=== PATIENT | female | born 1955 | race Caucasian/White ===

== ENCOUNTER 2021-07-08 16:19 | Inpatient (IN) | payer BC, MEDICARE ==
[~2021-07-08] VITALS: Ht 167.6 cm; Wt 56.8 kg
[~2021-07-08 16:19] MED LIST: NO HOME MEDS
[2021-07-08] MEDS ORDERED: dexamethasone sod phosphate 10mg/ml inj IV STA (16:54)
[2021-07-08] MEDS ORDERED: normal saline 1000ML IV soln IVB ONE (16:55)
[2021-07-08 18:12] LABS: BASOPHILS % (AUTO) 0.4 % (0-1); EOSINOPHILS % (AUTO) 0.5 % (0-6); HEMATOCRIT 36.9 % (35.0-45.0); HEMOGLOBIN 12.8 g/dl (12.0-16.0); LYMPHOCYTES # (AUTO) 1.5 X10'3 (1.1-4.8); LYMPHOCYTES % (AUTO) 14.7 % (21-51); MEAN CORPUSCULAR HEMOGLOBIN 30.5 PG (27.0-31.0); MEAN CORPUSCULAR HGB CONC 34.6 g/dL (33.0-36.5); MEAN CORPUSCULAR VOLUME 88.3 FL (78-98); MEAN PLATELET VOLUME 9.7 FL (7.4-10.4); MONOCYTES % (AUTO) 9.5 % (2-12); NEUTROPHILS # (AUTO) 7.5 X10'3 (1.8-7.7); NEUTROPHILS % (AUTO) 74.9 % (42-75); PLATELET COUNT 413 X10'3 (140-440); RED BLOOD COUNT 4.18 X10'6 (4.20-5.60); RED CELL DISTRIBUTION WIDTH 14.5 % (11.5-14.5)
[2021-07-08 18:20] LABS: ALANINE AMINOTRANSFERASE 46 U/L (12-78); ALBUMIN 3.5 G/DL (3.4-5.0); ALKALINE PHOSPHATASE 54 IU/L (46-116); ANION GAP 8 (8-16); ASPARTATE AMINO TRANSFERASE 37 U/L (10-37); BILIRUBIN,TOTAL 1.2 MG/DL (0.1-1.0); BLOOD UREA NITROGEN 31 MG/DL (7-18); BUN/CREATININE RATIO 31.3 (6.6-38.0); CALCIUM 8.9 MG/DL (8.5-10.1); CHLORIDE 102 MMOL/L (99-107); CREATININE 0.99 MG/DL (0.40-0.90); GLUCOSE 112 MG/DL (70-104); MAGNESIUM 1.8 MG/DL (1.5-2.4); SODIUM 144 MMOL/L (135-145); TOTAL CARBON DIOXIDE 34.1 MMOL/L (24-32); TOTAL PROTEIN 6.9 G/DL (6.4-8.2); eGFR 56 ML/MIN
[2021-07-08 18:27] LABS: POTASSIUM 2.8 MMOL/L (3.5-5.1)
[2021-07-08] MEDS ORDERED: potassium Cl 40 mEq/0.45% sodium chloride IV soln 520ml IV ONE (18:35)
--- NOTE | 2021-07-08 19:07 | NUR ---
Pt in room resting. Pt denies pain but states she is 'uncomfortable'.
[2021-07-08] MEDS: magnesium 2GM in 50ml NS 50 ML IV SCH ×2 (19:35→19:36)
--- NOTE | 2021-07-08 19:42 | NUR ---
Per ER MD, Mg order is for 2 mg totalx 1 bag Addendum: 07/08/21 at 1943 by JUNAID md order for 2 grams Mg total
[2021-07-08] MEDS ORDERED: potassium Cl 20 mEq SR tablet PO PRN ×2 (20:00)
[2021-07-08] MEDS ORDERED: potassium Cl 40MEQ/1/2NS 520ml 520 ML IV PRN ×2 (20:00)
[2021-07-08] MEDS ORDERED: ondansetron 4mg rapidly disintigrating tab PO PRN (20:00)
[2021-07-08] MEDS ORDERED: morphine 2 MG/ML inj. syringe IV PRN (20:00)
[2021-07-08] MEDS: docusate sod 100mg capsule PO SCH (20:00)
[2021-07-08] MEDS ORDERED: acetaminophen 650mg rectal suppository RC PRN (20:00)
[2021-07-08] MEDS ORDERED: bisacodyl 10mg suppository rectal RC PRN (20:00)
[2021-07-08] MEDS ORDERED: diphenhydrAMINE 25mg capsule PO PRN (20:00)
[2021-07-08] MEDS ORDERED: magnesium hydroxide 30ml (MOM) UD suspension PO PRN (20:00)
[2021-07-08] MEDS ORDERED: diphenhydrAMINE 50 mg/ml inj IV PRN (20:00)
[2021-07-08] MEDS: K and/or MAG REPLACEMENT MC SCH (20:00)
[2021-07-08] MEDS: potassium Cl 20mEq in NS 1,000 ML IV SCH (20:00)
[2021-07-08] MEDS ORDERED: acetaminophen 325mg tablet PO PRN ×2 (20:00)
[2021-07-08] MEDS ORDERED: mag hydrox/Alum hydrox/simeth 30ml oral suspension PO PRN (20:00)
[2021-07-08] MEDS ORDERED: ondansetron/PF 4mg/2ml inj IV PRN (20:00)
[2021-07-08] MEDS ORDERED: lisinopril 10 MG tablet PO ONE (20:05)
[2021-07-08 20:43] LABS: HEMOGLOBIN A1C 5.5 % (4.5-6.2)
[2021-07-08] MEDS: heparin, porcine 5000 units/ml vial SQ SCH (20:44)
[2021-07-08] MEDS: aspirin 81mg, enteric-coated 1 TAB TABLET.DR PO SCH (20:46)
[2021-07-08 20:50] LABS: CREATINE KINASE 75 U/L (26-192); D-DIMER 0.25 MG/L FEU (0-0.50); LIPASE 197 U/L (73-393); PARTIAL THROMBOPLASTIN TIME 27 SECONDS (22-32)
[2021-07-08] MEDS ORDERED: temazepam 15mg capsule PO PRN (21:00)
[2021-07-08] MEDS ORDERED: aspirin 325mg tablet PO ONE (21:40)
[2021-07-09] MEDS: HYDROcodone/acetaminophen 5mg/325mg tablet PO PRN (04:13)
[2021-07-09] MEDS: potassium Cl 20mEq in NS 1,000 ML IV SCH ×3 (05:58→22:32)
--- NOTE | 2021-07-09 06:55 | NUR ---
Patient in room ED 11. I have received report from ADE Mcdermott and had the opportunity to ask questions and assume patient care. Awaiting patient arrival to room 3020J.
[2021-07-09 07:22] VITALS: BP 148/59
--- NOTE | 2021-07-09 07:22 | NUR ---
Patient arrived to room 3027B via gurney from ED. Patient was transferred via slideboard into the bed. Vital signs are temp 98.3F, HR 46, RR 15, 94% on room air, BP 148/59, pain 0/10. Bed locked and lowered, nonskid socks on, call light in reach, and in no acute distress.
[2021-07-09] MEDS: docusate sod 100mg capsule PO SCH ×2 (08:00→20:00)
[2021-07-09] MEDS: K and/or MAG REPLACEMENT MC SCH ×2 (08:00→20:00)
[2021-07-09 08:14] LABS: BASOPHILS % (AUTO) 0.1 % (0-1); EOSINOPHILS % (AUTO) 0 % (0-6); HEMATOCRIT 36.4 % (35.0-45.0); HEMOGLOBIN 12.4 g/dl (12.0-16.0); LYMPHOCYTES # (AUTO) 0.9 X10'3 (1.1-4.8); LYMPHOCYTES % (AUTO) 9.7 % (21-51); MEAN CORPUSCULAR HEMOGLOBIN 30.7 PG (27.0-31.0); MEAN CORPUSCULAR VOLUME 90.1 FL (78-98); MONOCYTES # (AUTO) 0.4 X10'3 (0-0.9); MONOCYTES % (AUTO) 4.7 % (2-12); NEUTROPHILS # (AUTO) 7.8 X10'3 (1.8-7.7); NEUTROPHILS % (AUTO) 85.5 % (42-75); PLATELET COUNT 408 X10'3 (140-440); RED BLOOD COUNT 4.04 X10'6 (4.20-5.60); RED CELL DISTRIBUTION WIDTH 14.3 % (11.5-14.5); WHITE BLOOD COUNT 9.2 X10'3 (4.5-11.0)
[2021-07-09 08:32] LABS: ALANINE AMINOTRANSFERASE 45 U/L (12-78); ALBUMIN 3.2 G/DL (3.4-5.0); ALKALINE PHOSPHATASE 58 IU/L (46-116); ANION GAP 9 (8-16); ASPARTATE AMINO TRANSFERASE 29 U/L (10-37); BLOOD UREA NITROGEN 24 MG/DL (7-18); BUN/CREATININE RATIO 33.3 (6.6-38.0); CALCIUM 8.6 MG/DL (8.5-10.1); CHLORIDE 106 MMOL/L (99-107); CREATININE 0.72 MG/DL (0.40-0.90); GLUCOSE 108 MG/DL (70-104); POTASSIUM 4.1 MMOL/L (3.5-5.1); SODIUM 143 MMOL/L (135-145); TOTAL PROTEIN 6.5 G/DL (6.4-8.2); eGFR 81 ML/MIN
[2021-07-09] MEDS: pantoprazole 40mg Tablet.DR PO SCH (09:28)
[2021-07-09] MEDS: atorvastatin 20mg tablet PO SCH (09:28)
[2021-07-09] MEDS: aspirin 81mg, enteric-coated 1 TAB TABLET.DR PO SCH (09:29)
[2021-07-09] MEDS: heparin, porcine 5000 units/ml vial SQ SCH ×2 (09:31→19:45)
[2021-07-09] MEDS ORDERED: LORazepam 2 mg/ml vial IV ONE ×2 (10:45→13:25)
[2021-07-09 11:00] VITALS: BP 168/60
--- NOTE | 2021-07-09 11:53 | NUR ---
Paged Dr. Damon regarding patient being claustrophobic and wanting ativan prior to MRI. PAGER ID: [phone] MESSAGE: [id number]. Fernanda Valdivia. patient is claustrophobic. may I order ativan one time prior to MRI? Thank you. Lydia BOOKER x [phone]
--- NOTE | 2021-07-09 13:18 | NUR ---
Paged Dr. Damon regarding ativan for patient having claustrophobia for MRI again. PAGER ID: [phone] MESSAGE: [id number]. Fernanda Valdivia. Can I please get an order for Ativan for patient's claustrophobia for MRI? Thank you. Lydia BOOKER x [phone]
[2021-07-09 15:00] VITALS: BP 182/72
--- NOTE | 2021-07-09 17:28 | NUR ---
Patient leaving for MRI.
[2021-07-09 18:00] VITALS: BP 158/66
--- NOTE | 2021-07-09 18:00 | NUR ---
patient back from MRI.
--- NOTE | 2021-07-09 18:16 | NUR ---
Problems reprioritized. Patient report given, questions answered & plan of care reviewed with ADE Dinh. Patient stable at transfer of care.
--- NOTE | 2021-07-09 19:35 | NUR ---
Telephone order from Dr. Redding for 1 mg Ativan IV q2h PRN
[2021-07-09] MEDS: LORazepam 2 mg/ml vial IV PRN ×2 (19:46→22:33)
[2021-07-09 22:00] VITALS: BP 110/59
[2021-07-10 02:00] VITALS: BP 103/62
[2021-07-10 06:01] LABS: BASOPHILS % (AUTO) 0.3 % (0-1); EOSINOPHILS % (AUTO) 0.3 % (0-6); HEMATOCRIT 35.4 % (35.0-45.0); HEMOGLOBIN 12.3 g/dl (12.0-16.0); LYMPHOCYTES # (AUTO) 1.6 X10'3 (1.1-4.8); LYMPHOCYTES % (AUTO) 18.7 % (21-51); MEAN CORPUSCULAR HEMOGLOBIN 30.9 PG (27.0-31.0); MEAN CORPUSCULAR HGB CONC 34.9 g/dL (33.0-36.5); MEAN CORPUSCULAR VOLUME 88.5 FL (78-98); MEAN PLATELET VOLUME 9.2 FL (7.4-10.4); MONOCYTES # (AUTO) 0.7 X10'3 (0-0.9); MONOCYTES % (AUTO) 7.7 % (2-12); NEUTROPHILS # (AUTO) 6.2 X10'3 (1.8-7.7); PLATELET COUNT 391 X10'3 (140-440); RED CELL DISTRIBUTION WIDTH 14.4 % (11.5-14.5); WHITE BLOOD COUNT 8.5 X10'3 (4.5-11.0)
--- NOTE | 2021-07-10 06:19 | NUR ---
Patient in room PCU 3027. I have received report from ADE Dinh and had the opportunity to ask questions and assume patient care.
--- NOTE | 2021-07-10 06:19 | NUR ---
Problems reprioritized. Patient report given, questions answered & plan of care reviewed with Carole BOOKER.
[2021-07-10 06:23] LABS: ALANINE AMINOTRANSFERASE 44 U/L (12-78); ALBUMIN 3.1 G/DL (3.4-5.0); ALKALINE PHOSPHATASE 56 IU/L (46-116); ANION GAP 8 (8-16); ASPARTATE AMINO TRANSFERASE 33 U/L (10-37); BLOOD UREA NITROGEN 19 MG/DL (7-18); CALCIUM 8.3 MG/DL (8.5-10.1); CHLORIDE 112 MMOL/L (99-107); CREATININE 0.76 MG/DL (0.40-0.90); GLUCOSE 92 MG/DL (70-104); POTASSIUM 3.6 MMOL/L (3.5-5.1); SODIUM 147 MMOL/L (135-145); TOTAL CARBON DIOXIDE 27.3 MMOL/L (24-32); TOTAL PROTEIN 6.1 G/DL (6.4-8.2); eGFR 76 ML/MIN
--- NOTE | 2021-07-10 06:56 | NUR ---
Patient in room PCU 3027. I have received report from DAE Case and had the opportunity to ask questions and assume patient care.
[2021-07-10 07:00] VITALS: BP 139/78
[2021-07-10] MEDS: K and/or MAG REPLACEMENT MC SCH ×2 (08:00→19:35)
[2021-07-10] MEDS: pantoprazole 40mg Tablet.DR PO SCH (08:16)
[2021-07-10] MEDS: atorvastatin 20mg tablet PO SCH (08:16)
[2021-07-10] MEDS: aspirin 81mg, enteric-coated 1 TAB TABLET.DR PO SCH (08:16)
[2021-07-10] MEDS: potassium Cl 20mEq in NS 1,000 ML IV SCH ×2 (08:16→23:59)
[2021-07-10] MEDS: heparin, porcine 5000 units/ml vial SQ SCH ×2 (08:17→19:34)
[2021-07-10] MEDS: docusate sodium 100mg/10ml UD cup PO SCH ×2 (08:38→19:35)
[2021-07-10 11:00] VITALS: BP 154/69
--- NOTE | 2021-07-10 14:33 | NUR ---
Paged Sandra the Stroke nurse Fernanda Dove [id number] Can you call me regarding this pt please? Pt had positive infarct on CT/MRI 07/09/21 Thank you [phone]
[2021-07-10 15:00] VITALS: BP 142/87
--- NOTE | 2021-07-10 15:53 | NUR ---
Paged Physical Therapy Re Fernanda Valdivia Rm [phone] Can somebody help me put pt back to bed please? Thank you :) [phone]
[2021-07-10] MEDS: dextrose 5%-normal saline 1,000 ML IV SCH (16:45)
[2021-07-10] MEDS: HYDROcodone/acetaminophen 5mg/325mg tablet PO PRN (17:52)
[2021-07-10 18:00] VITALS: BP 158/86
--- NOTE | 2021-07-10 18:20 | NUR ---
Problems reprioritized. Patient report given, questions answered & plan of care reviewed with ADE Redd. Pt sitting up in bed, at bedside helping pt eat dinner.
--- NOTE | 2021-07-10 18:28 | NUR ---
Problems reprioritized. Patient report given, questions answered & plan of care reviewed with ADE Redd.
--- NOTE | 2021-07-10 18:30 | NUR ---
Patient in room PCU 3027. I have received report from Carole BOOKER and had the opportunity to ask questions and assume patient care.
[2021-07-10 22:00] VITALS: BP 181/77
[2021-07-11 02:00] VITALS: BP 194/82
[2021-07-11] MEDS: morphine 2 MG/ML inj. syringe IV PRN (03:10)
[2021-07-11 06:00] VITALS: BP 115/71
[2021-07-11 06:08] LABS: BASOPHILS # (AUTO) 0.1 X10'3 (0-0.2); BASOPHILS % (AUTO) 0.6 % (0-1); EOSINOPHILS % (AUTO) 0.5 % (0-6); HEMATOCRIT 35.3 % (35.0-45.0); HEMOGLOBIN 12.1 g/dl (12.0-16.0); LYMPHOCYTES # (AUTO) 1.2 X10'3 (1.1-4.8); MEAN CORPUSCULAR HEMOGLOBIN 30.8 PG (27.0-31.0); MEAN CORPUSCULAR HGB CONC 34.5 g/dL (33.0-36.5); MEAN CORPUSCULAR VOLUME 89.4 FL (78-98); MEAN PLATELET VOLUME 9.4 FL (7.4-10.4); MONOCYTES # (AUTO) 0.7 X10'3 (0-0.9); MONOCYTES % (AUTO) 7.6 % (2-12); NEUTROPHILS # (AUTO) 7.2 X10'3 (1.8-7.7); NEUTROPHILS % (AUTO) 78.3 % (42-75); PLATELET COUNT 393 X10'3 (140-440); RED BLOOD COUNT 3.94 X10'6 (4.20-5.60); RED CELL DISTRIBUTION WIDTH 13.9 % (11.5-14.5); WHITE BLOOD COUNT 9.2 X10'3 (4.5-11.0)
[2021-07-11 06:09] LABS: ALANINE AMINOTRANSFERASE 35 U/L (12-78); ALKALINE PHOSPHATASE 57 IU/L (46-116); ANION GAP 12 (8-16); ASPARTATE AMINO TRANSFERASE 27 U/L (10-37); BILIRUBIN,TOTAL 1.1 MG/DL (0.1-1.0); BLOOD UREA NITROGEN 13 MG/DL (7-18); BUN/CREATININE RATIO 19.4 (6.6-38.0); CALCIUM 8.4 MG/DL (8.5-10.1); CHLORIDE 111 MMOL/L (99-107); CREATININE 0.67 MG/DL (0.40-0.90); GLUCOSE 98 MG/DL (70-104); POTASSIUM 3.6 MMOL/L (3.5-5.1); SODIUM 148 MMOL/L (135-145); TOTAL CARBON DIOXIDE 25.5 MMOL/L (24-32); eGFR 88 ML/MIN
--- NOTE | 2021-07-11 06:30 | NUR ---
Problems reprioritized. Patient report given, questions answered & plan of care reviewed with Carole BOOKER.
[2021-07-11] MEDS: K and/or MAG REPLACEMENT MC SCH ×2 (08:00→19:38)
[2021-07-11] MEDS: aspirin 81mg, enteric-coated 1 TAB TABLET.DR PO SCH (09:02)
[2021-07-11] MEDS: atorvastatin 20mg tablet PO SCH (09:02)
[2021-07-11] MEDS: heparin, porcine 5000 units/ml vial SQ SCH ×2 (09:04→19:37)
[2021-07-11] MEDS: docusate sodium 100mg/10ml UD cup PO SCH ×2 (09:07→19:37)
[2021-07-11] MEDS: potassium Cl 20mEq in NS 1,000 ML IV SCH ×2 (09:07→18:00)
[2021-07-11] MEDS: pantoprazole 40mg Tablet.DR PO SCH (09:07)
[2021-07-11] MEDS: HYDROcodone/acetaminophen 5mg/325mg tablet PO PRN ×2 (09:08→14:41)
--- NOTE | 2021-07-11 10:05 | NUR ---
Paged Dr Damon PAGER ID: [phone] MESSAGE: Fernanda Dove [id number] FYI Positive MRSA nasal swab. Thanks Carole [phone]
[2021-07-11 11:00] VITALS: BP 202/87
--- NOTE | 2021-07-11 11:15 | NUR ---
Patient's blood pressure elevated 202/84 L arm, 210/[address] Damon on the floor and was informed. She said "she had a stroke, I want her to have elevated blood pressures, I will look at her medications."
[2021-07-11] MEDS: dextrose 5%-normal saline 1,000 ML IV SCH (11:38)
[2021-07-11 15:00] VITALS: BP 200/86
--- NOTE | 2021-07-11 17:02 | NUR ---
Paged Dr Damon PAGER ID: [phone] MESSAGE: Fernanda Dove [id number] FYI pt's blood pressure still elevated 200/86 HR 70. Thanks Carole [phone]
[2021-07-11 18:00] VITALS: BP 205/87
--- NOTE | 2021-07-11 18:03 | NUR ---
Problems reprioritized. Patient report given, questions answered & plan of care reviewed with ADE Redd. Pt sitting up visiting with family at change of shift. No signs of distress noted at this time.
--- NOTE | 2021-07-11 18:22 | NUR ---
Patient in room PCU 3027. I have received report from Carole BOOKER and had the opportunity to ask questions and assume patient care.
[2021-07-11 22:00] VITALS: BP 184/78
[2021-07-12] VITALS (8 sets, daily range): BP systolic 146–219; BP diastolic 68–106
[2021-07-12] MEDS: morphine 2 MG/ML inj. syringe IV PRN (03:01)
[2021-07-12] MEDS: potassium Cl 20mEq in NS 1,000 ML IV SCH ×2 (04:00→14:00)
[2021-07-12] MEDS: dextrose 5%-normal saline 1,000 ML IV SCH (05:25)
[2021-07-12 06:12] LABS: BASOPHILS % (AUTO) 0.5 % (0-1); EOSINOPHILS # (AUTO) 0.1 X10'3 (0-0.9); EOSINOPHILS % (AUTO) 1.6 % (0-6); HEMATOCRIT 38.8 % (35.0-45.0); HEMOGLOBIN 12.9 g/dl (12.0-16.0); LYMPHOCYTES # (AUTO) 1.3 X10'3 (1.1-4.8); LYMPHOCYTES % (AUTO) 16.5 % (21-51); MEAN CORPUSCULAR HEMOGLOBIN 30.1 PG (27.0-31.0); MEAN CORPUSCULAR HGB CONC 33.4 g/dL (33.0-36.5); MEAN CORPUSCULAR VOLUME 90.3 FL (78-98); MEAN PLATELET VOLUME 9.4 FL (7.4-10.4); MONOCYTES # (AUTO) 0.6 X10'3 (0-0.9); NEUTROPHILS # (AUTO) 5.7 X10'3 (1.8-7.7); NEUTROPHILS % (AUTO) 73.4 % (42-75); PLATELET COUNT 399 X10'3 (140-440); RED BLOOD COUNT 4.29 X10'6 (4.20-5.60); RED CELL DISTRIBUTION WIDTH 13.7 % (11.5-14.5); WHITE BLOOD COUNT 7.8 X10'3 (4.5-11.0)
--- NOTE | 2021-07-12 06:24 | NUR ---
Problems reprioritized. Patient report given, questions answered & plan of care reviewed with Carole BOOKER.
[2021-07-12 06:41] LABS: ALANINE AMINOTRANSFERASE 32 U/L (12-78); ALBUMIN 2.9 G/DL (3.4-5.0); ALBUMIN/GLOBULIN RATIO 0.9 (1.1-1.5); ALKALINE PHOSPHATASE 64 IU/L (46-116); ANION GAP 10 (8-16); ASPARTATE AMINO TRANSFERASE 27 U/L (10-37); BILIRUBIN,TOTAL 1.2 MG/DL (0.1-1.0); BLOOD UREA NITROGEN 6 MG/DL (7-18); CALCIUM 8.4 MG/DL (8.5-10.1); CHLORIDE 111 MMOL/L (99-107); GLUCOSE 101 MG/DL (70-104); POTASSIUM 3.3 MMOL/L (3.5-5.1); SODIUM 146 MMOL/L (135-145); TOTAL CARBON DIOXIDE 24.8 MMOL/L (24-32); TOTAL PROTEIN 6.2 G/DL (6.4-8.2); eGFR > 90 ML/MIN
[2021-07-12] MEDS ORDERED: magnesium 4gm in 100ml NS 100 ML IV PRN (07:00)
[2021-07-12] MEDS ORDERED: potassium Cl 40MEQ/1/2NS 520ml 520 ML IV PRN (07:00)
[2021-07-12] MEDS ORDERED: magnesium Cl slow-release 64mg tablet PO PRN (07:00)
[2021-07-12] MEDS ORDERED: potassium Cl 20 mEq SR tablet PO PRN ×2 (07:00)
[2021-07-12] MEDS ORDERED: POTASSIUM BICARB 20meq eff tab 20 MEQ TABLET.EFF PO PRN (07:10)
[2021-07-12] MEDS: docusate sodium 100mg/10ml UD cup PO SCH ×2 (07:59→20:33)
[2021-07-12] MEDS: POTASSIUM BICARB 20meq eff tab 20 MEQ TABLET.EFF PO PRN ×3 (07:59→20:33)
[2021-07-12] MEDS: pantoprazole 40mg Tablet.DR PO SCH (08:00)
[2021-07-12] MEDS: aspirin 81mg, enteric-coated 1 TAB TABLET.DR PO SCH (08:00)
[2021-07-12] MEDS: atorvastatin 20mg tablet PO SCH (08:00)
[2021-07-12] MEDS: heparin, porcine 5000 units/ml vial SQ SCH ×2 (08:01→20:35)
[2021-07-12] MEDS: HYDROcodone/acetaminophen 5mg/325mg tablet PO PRN ×2 (08:02→21:39)
[2021-07-12] MEDS: K and/or MAG REPLACEMENT MC SCH ×2 (08:02→20:00)
--- NOTE | 2021-07-12 18:22 | NUR ---
Problems reprioritized. Patient report given, questions answered & plan of care reviewed with ADE Gomez.
--- NOTE | 2021-07-12 18:23 | NUR ---
Problems reprioritized. Patient report given, questions answered & plan of care reviewed with ADE Gomez. Pt sitting up watching tv comfortably.
--- NOTE | 2021-07-12 18:32 | NUR ---
Patient in room PCU 3027. I have received report from Carole BOOKER and had the opportunity to ask questions and assume patient care.
[2021-07-13] VITALS (10 sets, daily range): BP systolic 173–219; BP diastolic 68–110
[2021-07-13] MEDS: potassium Cl 20mEq in NS 1,000 ML IV SCH ×3 (03:20→14:09)
[2021-07-13] MEDS: dextrose 5%-normal saline 1,000 ML IV SCH ×2 (03:21→21:56)
--- NOTE | 2021-07-13 06:32 | NUR ---
Problems reprioritized. Patient report given, questions answered & plan of care reviewed with Fabiola BOOKER.
[2021-07-13 06:35] LABS: BASOPHILS % (AUTO) 0.7 % (0-1); EOSINOPHILS # (AUTO) 0.1 X10'3 (0-0.9); EOSINOPHILS % (AUTO) 1.9 % (0-6); HEMATOCRIT 34.5 % (35.0-45.0); HEMOGLOBIN 11.8 g/dl (12.0-16.0); LYMPHOCYTES # (AUTO) 1.3 X10'3 (1.1-4.8); MEAN CORPUSCULAR HEMOGLOBIN 30.7 PG (27.0-31.0); MEAN CORPUSCULAR HGB CONC 34.3 g/dL (33.0-36.5); MEAN CORPUSCULAR VOLUME 89.4 FL (78-98); MEAN PLATELET VOLUME 9.2 FL (7.4-10.4); MONOCYTES # (AUTO) 0.6 X10'3 (0-0.9); MONOCYTES % (AUTO) 9.8 % (2-12); NEUTROPHILS # (AUTO) 4.2 X10'3 (1.8-7.7); NEUTROPHILS % (AUTO) 66.6 % (42-75); PLATELET COUNT 385 X10'3 (140-440); RED BLOOD COUNT 3.86 X10'6 (4.20-5.60); RED CELL DISTRIBUTION WIDTH 14.1 % (11.5-14.5); WHITE BLOOD COUNT 6.3 X10'3 (4.5-11.0)
[2021-07-13 06:49] LABS: ALANINE AMINOTRANSFERASE 32 U/L (12-78); ALBUMIN 2.7 G/DL (3.4-5.0); ALBUMIN/GLOBULIN RATIO 0.9 (1.1-1.5); ALKALINE PHOSPHATASE 51 IU/L (46-116); ANION GAP 9 (8-16); ASPARTATE AMINO TRANSFERASE 19 U/L (10-37); BLOOD UREA NITROGEN 5 MG/DL (7-18); BUN/CREATININE RATIO 8.2 (6.6-38.0); CALCIUM 8.3 MG/DL (8.5-10.1); CHLORIDE 112 MMOL/L (99-107); CREATININE 0.61 MG/DL (0.40-0.90); GLUCOSE 99 MG/DL (70-104); POTASSIUM 3.8 MMOL/L (3.5-5.1); SODIUM 147 MMOL/L (135-145); TOTAL CARBON DIOXIDE 25.7 MMOL/L (24-32); TOTAL PROTEIN 5.7 G/DL (6.4-8.2); eGFR > 90 ML/MIN
--- NOTE | 2021-07-13 06:51 | NUR ---
Patient in room PCU 3027. I have received report from Patricia BOOKER and had the opportunity to ask questions and assume patient care.
[2021-07-13] MEDS: K and/or MAG REPLACEMENT MC SCH ×2 (08:00→18:55)
[2021-07-13] MEDS: docusate sodium 100mg/10ml UD cup PO SCH ×2 (09:00→19:39)
[2021-07-13] MEDS: heparin, porcine 5000 units/ml vial SQ SCH ×2 (09:00→19:40)
[2021-07-13] MEDS: atorvastatin 20mg tablet PO SCH (09:01)
[2021-07-13] MEDS: aspirin 81mg, enteric-coated 1 TAB TABLET.DR PO SCH (09:01)
[2021-07-13] MEDS: morphine 2 MG/ML inj. syringe IV PRN (09:02)
[2021-07-13] MEDS: pantoprazole 40mg Tablet.DR PO SCH (09:05)
[2021-07-13] MEDS ORDERED: ATOR20TA66 PO (09:48)
[2021-07-13] MEDS ORDERED: ASPI-1071 PO (09:48)
[2021-07-13] MEDS ORDERED: LISI-790 PO (09:48)
[2021-07-13] MEDS ORDERED: lisinopril 5mg tablet PO SCH (09:50)
--- NOTE | 2021-07-13 11:19 | NUR ---
PAGER ID: [phone] MESSAGE: Fabiola santos [phone] re: Skip Michael [id number]. Pts BP 193/87l. Lisinopril given 80min ago. Thank you
--- NOTE | 2021-07-13 15:32 | NUR ---
PAGER ID: [phone] MESSAGE: narcisa santos [phone] re: Fernanda Valdivia 3027B. Pts BP 207/86. PLease advise. Thank you
--- NOTE | 2021-07-13 15:41 | NUR ---
Initial: Pt admit for CVA and syncope. Pt s/p BSS with ST recs pureed food with thin liquids, currently averaging 25-50% PO intake not meeting estimated nutrient needs. Attempted visit with pt at bedside however pt sleeping. Noted pt recently admitted and seen by JASON 06/28, pt agreed to chocolate Ensure Enlive at that time and declined yogurt, shakes, and smoothies. Recommend Ensure Enlive this visit to optimize PO intake. ONS to be spent pending MD approval in EMR. LBM 07/11. Will continue to follow closely. Recommendations: 1) Continue pureed heart healthy diet with thin liquids per ST recs 2) Ensure Enlive TID, pending MD approval in EMR 3) Routine bowel care 4) Weekly scaled weights Addendum: 07/13/21 at [address] Amended: Links added.
[2021-07-13] MEDS ORDERED: lisinopril 5mg tablet PO ONE ×2 (15:55→20:15)
[2021-07-13] MEDS: hydrALAZINE 20mg/ml inj. IV PRN ×2 (16:16→23:11)
[2021-07-13] MEDS: HYDROcodone/acetaminophen 5mg/325mg tablet PO PRN ×2 (16:52→23:07)
[2021-07-13] MEDS ORDERED: lactose-reduced food (Ensure Enlive) - 237ml bottle PO SCH (18:00)
--- NOTE | 2021-07-13 18:00 | NUR ---
Patient in room PCU 3027. I have received report from narcisa santos and had the opportunity to ask questions and assume patient care.
--- NOTE | 2021-07-13 20:13 | NUR ---
MD Brooks bp at 219/89 patient was given apresoline 5mg IV qh prn at 1616 is not due until 2215. patient asymptomatic. md notified. asks for creatinine which is 0.61. wants sys. blood pressure to maintain around 160mmHG. orders zestril 5mg po one time and vasotec 2.5mg IV one time. give vasotect first recheck vitals hold zestril i sbp < 160mmHg. TORB confirmed and ordered.
[2021-07-13] MEDS ORDERED: enalaprilat dihydrate 2.5mg/2ml vial IV ONE (20:15)
[2021-07-13] MEDS ORDERED: amLODIPine 2.5mg tablet PO ONE (21:40)
[2021-07-13] MEDS ORDERED: nitroGLYCERIN 1gm ointment UD TP ONE (23:25)
[2021-07-14] VITALS (7 sets, daily range): BP systolic 167–199; BP diastolic 71–98
[2021-07-14] MEDS: HYDROcodone/acetaminophen 5mg/325mg tablet PO PRN ×4 (00:09→17:19)
[2021-07-14] MEDS: morphine 2 MG/ML inj. syringe IV PRN ×3 (00:22→18:16)
[2021-07-14] MEDS: K and/or MAG REPLACEMENT MC SCH ×2 (08:00→20:00)
[2021-07-14] MEDS: docusate sodium 100mg/10ml UD cup PO SCH ×2 (08:00→21:01)
[2021-07-14] MEDS: pantoprazole 40mg Tablet.DR PO SCH (08:17)
[2021-07-14] MEDS: atorvastatin 20mg tablet PO SCH (08:18)
[2021-07-14] MEDS: lisinopril 5mg tablet PO SCH (08:18)
[2021-07-14] MEDS: heparin, porcine 5000 units/ml vial SQ SCH ×2 (08:18→21:01)
[2021-07-14] MEDS: hydrALAZINE 20mg/ml inj. IV PRN ×2 (10:30→17:19)
[2021-07-14] MEDS: potassium Cl 20mEq in NS 1,000 ML IV SCH ×3 (11:32→21:02)
[2021-07-14] MEDS ORDERED: aspirin 81mg tab.chew PO ONE (15:05)
--- NOTE | 2021-07-14 18:42 | NUR ---
Patient in room PCU 3027. I have received report from Natacha BOOKER and had the opportunity to ask questions and assume patient care.
[2021-07-15] MEDS: hydrALAZINE 20mg/ml inj. IV PRN ×3 (00:43→22:34)
[2021-07-15] MEDS: morphine 2 MG/ML inj. syringe IV PRN ×2 (00:44→11:59)
[2021-07-15 02:00] VITALS: BP 173/69
[2021-07-15 06:45] LABS: ANION GAP 10 (8-16); ASPARTATE AMINO TRANSFERASE 28 U/L (10-37); BILIRUBIN,TOTAL 1.1 MG/DL (0.1-1.0); BLOOD UREA NITROGEN 6 MG/DL (7-18); BUN/CREATININE RATIO 9.4 (6.6-38.0); CALCIUM 8.9 MG/DL (8.5-10.1); CHLORIDE 112 MMOL/L (99-107); CREATININE 0.64 MG/DL (0.40-0.90); GLUCOSE 89 MG/DL (70-104); MAGNESIUM 1.2 MG/DL (1.5-2.4); PHOSPHORUS 4.1 MG/DL (2.3-4.5); POTASSIUM 3.6 MMOL/L (3.5-5.1); SODIUM 146 MMOL/L (135-145); TOTAL CARBON DIOXIDE 24.4 MMOL/L (24-32); TOTAL PROTEIN 6.1 G/DL (6.4-8.2); eGFR > 90 ML/MIN
[2021-07-15 06:46] LABS: ALANINE AMINOTRANSFERASE 33 U/L (12-78); ALKALINE PHOSPHATASE 59 IU/L (46-116)
[2021-07-15 06:58] LABS: BASOPHILS % (AUTO) 0.6 % (0-1); EOSINOPHILS # (AUTO) 0.1 X10'3 (0-0.9); EOSINOPHILS % (AUTO) 2.2 % (0-6); HEMATOCRIT 35.6 % (35.0-45.0); HEMOGLOBIN 12.4 g/dl (12.0-16.0); LYMPHOCYTES # (AUTO) 1.2 X10'3 (1.1-4.8); LYMPHOCYTES % (AUTO) 18.6 % (21-51); MEAN CORPUSCULAR HGB CONC 34.9 g/dL (33.0-36.5); MEAN CORPUSCULAR VOLUME 88.9 FL (78-98); MEAN PLATELET VOLUME 8.8 FL (7.4-10.4); MONOCYTES # (AUTO) 0.5 X10'3 (0-0.9); MONOCYTES % (AUTO) 7.2 % (2-12); NEUTROPHILS # (AUTO) 4.7 X10'3 (1.8-7.7); NEUTROPHILS % (AUTO) 71.4 % (42-75); PLATELET COUNT 418 X10'3 (140-440); RED CELL DISTRIBUTION WIDTH 14.1 % (11.5-14.5); WHITE BLOOD COUNT 6.6 X10'3 (4.5-11.0)
[2021-07-15 07:00] VITALS: BP 182/75
--- NOTE | 2021-07-15 07:18 | NUR ---
Patient in room PCU 3027. I have received report from danielle Zhou and had the opportunity to ask questions and assume patient care.
[2021-07-15] MEDS: K and/or MAG REPLACEMENT MC SCH ×2 (08:00→20:00)
[2021-07-15] MEDS: atorvastatin 20mg tablet PO SCH (08:36)
[2021-07-15] MEDS: pantoprazole 40mg Tablet.DR PO SCH (08:36)
[2021-07-15] MEDS: heparin, porcine 5000 units/ml vial SQ SCH ×2 (08:36→22:38)
[2021-07-15] MEDS: aspirin 81mg tab.chew PO SCH (08:36)
[2021-07-15] MEDS: docusate sodium 100mg/10ml UD cup PO SCH ×2 (08:36→22:39)
[2021-07-15] MEDS: lisinopril 5mg tablet PO SCH (08:36)
[2021-07-15] MEDS ORDERED: magnesium Cl slow-release 64mg tablet PO PRN (09:30)
[2021-07-15] MEDS ORDERED: magnesium 4gm in 100ml NS 100 ML IV PRN (09:30)
--- NOTE | 2021-07-15 09:31 | NUR ---
Problems reprioritized. Patient report given, questions answered & plan of care reviewed with Carole BOOKER.
[2021-07-15 11:00] VITALS: BP 185/77
[2021-07-15] MEDS: potassium Cl 20mEq in NS 1,000 ML IV SCH (12:06)
[2021-07-15 15:00] VITALS: BP 156/66
[2021-07-15] MEDS: hyDRALAzine 10mg tablet PO SCH (16:24)
[2021-07-15] MEDS: HYDROcodone/acetaminophen 5mg/325mg tablet PO PRN (16:28)
[2021-07-15 18:00] VITALS: BP 170/64
--- NOTE | 2021-07-15 18:36 | NUR ---
Problems reprioritized. Patient report given, questions answered & plan of care reviewed with ADE Cox. All pt needs met at this time.
[2021-07-15 22:00] VITALS: BP 186/72
[2021-07-16] MEDS: hyDRALAzine 10mg tablet PO SCH ×3 (00:30→16:15)
[2021-07-16] MEDS: potassium Cl 20mEq in NS 1,000 ML IV SCH ×3 (00:39→20:08)
[2021-07-16 02:00] VITALS: BP 171/69
[2021-07-16 06:00] VITALS: BP 186/73
--- NOTE | 2021-07-16 06:09 | NUR ---
Problems reprioritized. Patient bedside report given, questions answered & plan of care reviewed with ADE Haddad.
[2021-07-16 06:26] LABS: BASOPHILS % (AUTO) 0.9 % (0-1); EOSINOPHILS # (AUTO) 0.2 X10'3 (0-0.9); EOSINOPHILS % (AUTO) 2.7 % (0-6); HEMATOCRIT 33.8 % (35.0-45.0); HEMOGLOBIN 11.7 g/dl (12.0-16.0); LYMPHOCYTES # (AUTO) 1.1 X10'3 (1.1-4.8); LYMPHOCYTES % (AUTO) 19.8 % (21-51); MEAN CORPUSCULAR HEMOGLOBIN 30.5 PG (27.0-31.0); MEAN CORPUSCULAR HGB CONC 34.6 g/dL (33.0-36.5); MEAN CORPUSCULAR VOLUME 88.1 FL (78-98); MEAN PLATELET VOLUME 8.5 FL (7.4-10.4); MONOCYTES # (AUTO) 0.5 X10'3 (0-0.9); MONOCYTES % (AUTO) 8.3 % (2-12); NEUTROPHILS # (AUTO) 3.8 X10'3 (1.8-7.7); NEUTROPHILS % (AUTO) 68.3 % (42-75); PLATELET COUNT 369 X10'3 (140-440); RED BLOOD COUNT 3.83 X10'6 (4.20-5.60); RED CELL DISTRIBUTION WIDTH 14.2 % (11.5-14.5); WHITE BLOOD COUNT 5.6 X10'3 (4.5-11.0)
[2021-07-16 06:40] LABS: ALANINE AMINOTRANSFERASE 37 U/L (12-78); ALBUMIN 2.8 G/DL (3.4-5.0); ALBUMIN/GLOBULIN RATIO 0.9 (1.1-1.5); ALKALINE PHOSPHATASE 57 IU/L (46-116); ANION GAP 9 (8-16); ASPARTATE AMINO TRANSFERASE 35 U/L (10-37); BLOOD UREA NITROGEN 7 MG/DL (7-18); BUN/CREATININE RATIO 11.7 (6.6-38.0); CALCIUM 8.6 MG/DL (8.5-10.1); CHLORIDE 113 MMOL/L (99-107); GLUCOSE 90 MG/DL (70-104); MAGNESIUM 1.8 MG/DL (1.5-2.4); PHOSPHORUS 3.9 MG/DL (2.3-4.5); POTASSIUM 3.9 MMOL/L (3.5-5.1); SODIUM 146 MMOL/L (135-145); TOTAL CARBON DIOXIDE 23.9 MMOL/L (24-32); TOTAL PROTEIN 5.8 G/DL (6.4-8.2); eGFR > 90 ML/MIN
[2021-07-16] MEDS: hydrALAZINE 20mg/ml inj. IV PRN (06:48)
[2021-07-16] MEDS: K and/or MAG REPLACEMENT MC SCH ×2 (08:00→20:00)
[2021-07-16] MEDS: pantoprazole 40mg Tablet.DR PO SCH (08:28)
[2021-07-16] MEDS: atorvastatin 20mg tablet PO SCH (08:28)
[2021-07-16] MEDS: lisinopril 5mg tablet PO SCH (08:28)
[2021-07-16] MEDS: aspirin 81mg tab.chew PO SCH (08:28)
[2021-07-16] MEDS: heparin, porcine 5000 units/ml vial SQ SCH ×2 (08:29→20:05)
[2021-07-16] MEDS: docusate sodium 100mg/10ml UD cup PO SCH ×2 (08:29→20:05)
[2021-07-16] MEDS: morphine 2 MG/ML inj. syringe IV PRN ×3 (11:38→20:01)
[2021-07-16 15:00] VITALS: BP 173/66
--- NOTE | 2021-07-16 15:01 | NUR ---
Reassessment: Pt PO remains poor ~25% avg pureed/thin/heart healthy diet not meeting needs. Noted prior 5 days constipation likely impacting PO hx; receiving routine colace w/ PRN MoM 07/16 per EMR. JASON d/w RN who reports pt has had BM today pending documentation. JASON d/w RN regarding liberalizing to regular/pureed/thin diet if MD agreeable given poor PO hx. Ensure Enlive ONS pending verification in EMR; JASON d/w RN regarding ONS verification to start ONS as soon as possible if MD okay. Pt has residual R hemiparesis though requires minimal assistance w/ meals per RN. Pt seen by RD and reports decreased appetite w/ no food in particular sounding good at this time. Pt is agreeable to Ensure Enlive TIDWM though unable to send until verification. Will send milkshakes TIDWM in meantime for additional kcals; dietary notified. Will continue to monitor for PO acceptance and additional protein/kcal needs this admit. Recommendations: 1) Liberalize to pureed/regular diet w/ thin liquids IF MD agreeable given poor PO hx; encourage PO 2) Ensure Enlive TID, pending MD approval in EMR. Milkshakes TIDWM in meantime for additional kcals 3) consider appetite stimulant given lack of appetite IF MD agreeable 4) Routine bowel care 5) Weekly scaled weights Addendum: 07/16/21 at [address] Amended: Links added.
[2021-07-16 18:00] VITALS: BP 148/90
--- NOTE | 2021-07-16 18:05 | NUR ---
Problems reprioritized. Patient report given, questions answered & plan of care reviewed with Brooke BOOKER.
[2021-07-16 22:00] VITALS: BP 178/82
[2021-07-17] VITALS (7 sets, daily range): BP systolic 167–185; BP diastolic 66–76
[2021-07-17] MEDS: hyDRALAzine 10mg tablet PO SCH ×3 (00:10→16:48)
[2021-07-17] MEDS: morphine 2 MG/ML inj. syringe IV PRN ×3 (00:18→13:32)
[2021-07-17] MEDS: hydrALAZINE 20mg/ml inj. IV PRN ×3 (03:53→15:25)
[2021-07-17 06:00] LABS: BASOPHILS % (AUTO) 0.5 % (0-1); EOSINOPHILS # (AUTO) 0.1 X10'3 (0-0.9); EOSINOPHILS % (AUTO) 2.2 % (0-6); HEMATOCRIT 34.4 % (35.0-45.0); HEMOGLOBIN 11.7 g/dl (12.0-16.0); LYMPHOCYTES # (AUTO) 1.2 X10'3 (1.1-4.8); MEAN CORPUSCULAR HEMOGLOBIN 30.7 PG (27.0-31.0); MEAN CORPUSCULAR VOLUME 90.2 FL (78-98); MEAN PLATELET VOLUME 8.8 FL (7.4-10.4); MONOCYTES # (AUTO) 0.5 X10'3 (0-0.9); MONOCYTES % (AUTO) 8.5 % (2-12); NEUTROPHILS # (AUTO) 4.4 X10'3 (1.8-7.7); NEUTROPHILS % (AUTO) 69.8 % (42-75); PLATELET COUNT 380 X10'3 (140-440); RED BLOOD COUNT 3.82 X10'6 (4.20-5.60); RED CELL DISTRIBUTION WIDTH 14.5 % (11.5-14.5); WHITE BLOOD COUNT 6.2 X10'3 (4.5-11.0)
[2021-07-17 06:07] LABS: ALANINE AMINOTRANSFERASE 46 U/L (12-78); ALBUMIN 2.9 G/DL (3.4-5.0); ALKALINE PHOSPHATASE 52 IU/L (46-116); ANION GAP 11 (8-16); ASPARTATE AMINO TRANSFERASE 38 U/L (10-37); BILIRUBIN,TOTAL 0.9 MG/DL (0.1-1.0); BLOOD UREA NITROGEN 6 MG/DL (7-18); BUN/CREATININE RATIO 10.2 (6.6-38.0); CALCIUM 8.6 MG/DL (8.5-10.1); CHLORIDE 112 MMOL/L (99-107); CREATININE 0.59 MG/DL (0.40-0.90); GLUCOSE 88 MG/DL (70-104); MAGNESIUM 1.7 MG/DL (1.5-2.4); PHOSPHORUS 3.8 MG/DL (2.3-4.5); POTASSIUM 3.9 MMOL/L (3.5-5.1); SODIUM 146 MMOL/L (135-145); TOTAL CARBON DIOXIDE 23.4 MMOL/L (24-32); TOTAL PROTEIN 5.9 G/DL (6.4-8.2); eGFR > 90 ML/MIN
--- NOTE | 2021-07-17 06:22 | NUR ---
Problems reprioritized. Patient report given, questions answered & plan of care reviewed with Carole Rn and ADE Remy.
--- NOTE | 2021-07-17 06:41 | NUR ---
Patient in room PCU 3027. I have received report from ADE Cox and had the opportunity to ask questions and assume patient care.
--- NOTE | 2021-07-17 06:48 | NUR ---
Patient in room PCU 3027. I have received report from ADE Cox and had the opportunity to ask questions and assume patient care.
[2021-07-17] MEDS: K and/or MAG REPLACEMENT MC SCH ×2 (08:00→20:00)
[2021-07-17] MEDS: lisinopril 5mg tablet PO SCH (08:06)
[2021-07-17] MEDS: pantoprazole 40mg Tablet.DR PO SCH (08:07)
[2021-07-17] MEDS: aspirin 81mg tab.chew PO SCH (08:07)
[2021-07-17] MEDS: atorvastatin 20mg tablet PO SCH (08:07)
[2021-07-17] MEDS: docusate sodium 100mg/10ml UD cup PO SCH ×2 (08:08→21:24)
[2021-07-17] MEDS: heparin, porcine 5000 units/ml vial SQ SCH ×2 (08:08→21:25)
[2021-07-17] MEDS: potassium Cl 20mEq in NS 1,000 ML IV SCH ×2 (08:08→14:30)
[2021-07-17] MEDS: HYDROcodone/acetaminophen 5mg/325mg tablet PO PRN ×2 (13:10→17:50)
--- NOTE | 2021-07-17 14:47 | NUR ---
Paged Dr Garcia PAGER ID: [phone] MESSAGE: Fernanda Dove Rm [id number] FYI Pt's L eye is swollen and red. Pts son has pink eye. Please advise. Thank you Carole [phone]
--- NOTE | 2021-07-17 15:28 | NUR ---
Esteban up Hydralyzine that was too soon to give. Wasted 2 RN with ADE Lam.
--- NOTE | 2021-07-17 15:33 | NUR ---
[phone] MESSAGE: re [id number] Fernanda Valdivia - pt bp is 190/71. Too soon to give hydralyzine. please advise. ADE Remy [phone]
--- NOTE | 2021-07-17 18:18 | NUR ---
Problems reprioritized. Patient report given, questions answered & plan of care reviewed with danielle quintanilla.
--- NOTE | 2021-07-17 18:19 | NUR ---
Problems reprioritized. Patient report given, questions answered & plan of care reviewed with ADE Cox/ADE Almaraz. Pt laying in bed resting comfortably, no signs of distress noted. All pt needs met at this time.
--- NOTE | 2021-07-17 18:21 | NUR ---
[place] documentation: I have reviewed and agree with all interventions, assessments performed and documented by ADE Remy.
--- NOTE | 2021-07-17 18:21 | NUR ---
[place] Medication Administration: For this medication-pass time frame, all medication were reviewed, dispensed, administered and documented per hospital policy by ADE Remy.
[2021-07-18] MEDS: hyDRALAzine 10mg tablet PO SCH ×2 (00:07→07:42)
[2021-07-18] MEDS: potassium Cl 20mEq in NS 1,000 ML IV SCH ×2 (00:08→11:09)
[2021-07-18 02:00] VITALS: BP 189/70
[2021-07-18] MEDS: hydrALAZINE 20mg/ml inj. IV PRN ×2 (03:44→12:15)
[2021-07-18] MEDS: HYDROcodone/acetaminophen 5mg/325mg tablet PO PRN ×2 (04:38→12:15)
[2021-07-18 06:00] VITALS: BP 173/70
--- NOTE | 2021-07-18 06:08 | NUR ---
Problems reprioritized. Patient report given, questions answered & plan of care reviewed with ADE Lam.
--- NOTE | 2021-07-18 06:09 | NUR ---
Patient in room PCU 3027. I have received report from Brooke RN/ADE Almaraz and had the opportunity to ask questions and assume patient care.
--- NOTE | 2021-07-18 06:09 | NUR ---
Patient in room PCU 3027. I have received report from ADE Cox and had the opportunity to ask questions and assume patient care.
[2021-07-18 06:15] LABS: BASOPHILS # (AUTO) 0.1 X10'3 (0-0.2); BASOPHILS % (AUTO) 0.8 % (0-1); EOSINOPHILS # (AUTO) 0.1 X10'3 (0-0.9); EOSINOPHILS % (AUTO) 1.6 % (0-6); HEMATOCRIT 36.4 % (35.0-45.0); HEMOGLOBIN 12.5 g/dl (12.0-16.0); LYMPHOCYTES % (AUTO) 15.2 % (21-51); MEAN CORPUSCULAR HEMOGLOBIN 30.8 PG (27.0-31.0); MEAN CORPUSCULAR HGB CONC 34.4 g/dL (33.0-36.5); MEAN CORPUSCULAR VOLUME 89.6 FL (78-98); MEAN PLATELET VOLUME 8.9 FL (7.4-10.4); MONOCYTES # (AUTO) 0.5 X10'3 (0-0.9); MONOCYTES % (AUTO) 7.7 % (2-12); NEUTROPHILS # (AUTO) 5.1 X10'3 (1.8-7.7); NEUTROPHILS % (AUTO) 74.7 % (42-75); PLATELET COUNT 388 X10'3 (140-440); RED BLOOD COUNT 4.06 X10'6 (4.20-5.60); RED CELL DISTRIBUTION WIDTH 14.5 % (11.5-14.5); WHITE BLOOD COUNT 6.8 X10'3 (4.5-11.0)
--- NOTE | 2021-07-18 06:39 | NUR ---
[place] Medication Administration: For this medication-pass time frame, all medication were reviewed, dispensed, administered and documented per hospital policy by ADE Almaraz.
--- NOTE | 2021-07-18 06:39 | NUR ---
[place] documentation: I have reviewed and agree with all interventions, assessments performed and documented by ADE Almaraz.
[2021-07-18 06:40] LABS: ALANINE AMINOTRANSFERASE 46 U/L (12-78); ALBUMIN 3.2 G/DL (3.4-5.0); ALKALINE PHOSPHATASE 62 IU/L (46-116); ANION GAP 12 (8-16); ASPARTATE AMINO TRANSFERASE 41 U/L (10-37); BILIRUBIN,TOTAL 0.9 MG/DL (0.1-1.0); BLOOD UREA NITROGEN 7 MG/DL (7-18); BUN/CREATININE RATIO 11.3 (6.6-38.0); CALCIUM 9.1 MG/DL (8.5-10.1); CHLORIDE 111 MMOL/L (99-107); CREATININE 0.62 MG/DL (0.40-0.90); GLUCOSE 82 MG/DL (70-104); MAGNESIUM 1.6 MG/DL (1.5-2.4); PHOSPHORUS 4.4 MG/DL (2.3-4.5); POTASSIUM 4.3 MMOL/L (3.5-5.1); SODIUM 146 MMOL/L (135-145); TOTAL CARBON DIOXIDE 22.9 MMOL/L (24-32); TOTAL PROTEIN 6.4 G/DL (6.4-8.2); eGFR > 90 ML/MIN
[2021-07-18] MEDS: docusate sodium 100mg/10ml UD cup PO SCH ×2 (07:42→08:00)
[2021-07-18] MEDS: atorvastatin 20mg tablet PO SCH (07:43)
[2021-07-18] MEDS: lisinopril 5mg tablet PO SCH (07:43)
[2021-07-18] MEDS: heparin, porcine 5000 units/ml vial SQ SCH (07:43)
[2021-07-18] MEDS: pantoprazole 40mg Tablet.DR PO SCH (07:43)
[2021-07-18] MEDS: K and/or MAG REPLACEMENT MC SCH (07:45)
[2021-07-18 08:00] VITALS: BP_SYST 166; BP_SYST 190; BP_DIAS 70; BP_DIAS 81
[2021-07-18] MEDS: aspirin 81mg tab.chew PO SCH (08:01)
[2021-07-18] MEDS: morphine 2 MG/ML inj. syringe IV PRN (08:01)
--- NOTE | 2021-07-18 10:35 | NUR ---
Paged Dr Garcia PAGER ID: [phone] MESSAGE: Fernanda Dove [id number] Pt's L eye still red/itchy. Please advise. Thank you Carole [phone]
[2021-07-18 11:00] VITALS: BP 164/67
[2021-07-18 15:00] VITALS: BP 177/73
--- NOTE | 2021-07-18 16:20 | NUR ---
[place] Medication Administration: For this medication-pass time frame, all medication were reviewed, dispensed, administered and documented per hospital policy by ADE Remy.
--- NOTE | 2021-07-18 16:20 | NUR ---
[place] documentation: I have reviewed and agree with all interventions, assessments performed and documented by ADE Remy.
--- NOTE | 2021-07-18 16:20 | NUR ---
pt stable for transfer to [facility] per md orders. Report called to ADE Rosales at [facility]. PIV discontinued, cannula intact. manager wellness discontinued. Belongings collected and sent with the patient. Transferred to [facility] via [facility].
== END 2021-07-18 16:20 | DRG 65 ==
LOC: ER 16:19 → ED HOLD 20:02 → PCU 3S 07-09 07:22
PROVIDERS: ADMIT Family Medicine; ATTEND Family Medicine
DX: I63.40 Cerebral infarction due to embolism of unspecified cerebral artery (principal); G81.91 Hemiplegia, unspecified affecting right dominant side; I50.32 Chronic diastolic (congestive) heart failure; E87.0 Hyperosmolality and hypernatremia; E78.5 Hyperlipidemia, unspecified; E86.1 Hypovolemia; E87.6 Hypokalemia; I11.0 Hypertensive heart disease with heart failure; I49.3 Ventricular premature depolarization; W18.30XA Fall on same level, unspecified, initial encounter; R47.1 Dysarthria and anarthria; Z20.822 Contact with and (suspected) exposure to COVID-19; J44.9 Chronic obstructive pulmonary disease, unspecified; R29.710 NIHSS score 10; R47.01 Aphasia; Z79.899 Other long term (current) drug therapy; Z86.73 Personal history of transient ischemic attack (TIA), and cerebral infarction without residual deficits; Z87.891 Personal history of nicotine dependence; Y93.89 Activity, other specified; Y92.89 Other specified places as the place of occurrence of the external cause; Y99.8 Other external cause status
CPT/HCPCS: 36415; 70450; 70551; 71045; 80053; 82550; 83036; 83690; 83735; 83880; 84100; 84443; 84484; 85025; 85379; 85610; 85730; 87081; 87635; 92508; 92616; 93005; 93308; 96361; 96365; 96375; 97110; 97112; 97116; 97124; 97161; 97530; 97535; 97760; 99285; G0378; J0360; J1100; J1644; J2060; J2270; J2405; J3475; J3480; J7030; J7042